=== PATIENT | male | born 1950 | race Caucasian/White ===

== ENCOUNTER 2022-12-27 04:20 | Day surgery (SDC) | payer OTHER ==
[2022-12-25 15:02] VITALS: BMI 31.3
[2022-12-27 08:42] VITALS: PULSE 71
[2022-12-27 09:13] VITALS: BP 128/71; RESP 21; TEMP 98
== END 2022-12-27 09:05 | disposition home or self-care (01) ==
LOC: JASU-ENDO 04:20
PROVIDERS: ATTEND Internal Medicine Gastroenterology
PROC: 0DJD8ZZ Inspection of Lower Intestinal Tract, Via Natural or Artificial Opening Endoscopic (ICD-10-PCS; principal; 2022-12-27 08:00)
DX: Z12.11 Encounter for screening for malignant neoplasm of colon (principal); K57.30 Diverticulosis of large intestine without perforation or abscess without bleeding; K64.8 Other hemorrhoids